=== PATIENT | female | born 1980 | race Caucasian/White ===

== ENCOUNTER 2016-12-15 10:36 | Emergency (ER) | payer OTHER ==
[~2016-12-15] VITALS: Ht 162.6 cm; Wt 58.3 kg
[~2016-12-15 10:36] MED LIST: CALC500C70 PO; OMEG10007 PO; PRENTAB26 PO
[2016-12-15 10:40] VITALS: TEMP 36.8; Ht 162.6 cm; Wt 58.3 kg
[2016-12-15] MEDS ORDERED: MULT-506 PO (11:14)
--- NOTE | 2016-12-15 11:48 | EMERGENCY ROOM VISIT NOTE ---
History First contact with patient: 10:54 Chief Complaint: HEAD INJURY (MINOR) Stated Complaint: MILD CONCUSSION,HEADACHE,FATIGUE History of Present Illness The patient is a 36 year old female who presents to the Emergency Room with complaints of left-sided facial injury. The patient states yesterday she was bending down and moving an ottoman in her living room when her 40 pound dog jumped and hit her in the left side of the face. The patient denies any loss of consciousness, dizziness, visual changes. The patient denies any nausea or vomiting. The patient states that since that time she has difficulty concentrating and feels tired. The patient states that she has chronic neck pain. She states she normally sees a chiropractor for her neck pain. Review of Systems 10 system review was performed and was negative unless stated otherwise history of present illness. Social History Smoking Status: Never Smoker Current/Historical Medications Scheduled Multivitamin (Multivitamin), 1 TAB PO DAILY Physical Exam Vital Signs Date Time Temp Pulse Resp B/P (MAP) Pulse Ox O2 Delivery O2 Flow Rate FiO2 12/15/16 10:40 36.8 96 18 131/82 96 Room Air Physical Exam GENERAL: 36-year-old white female appears in no acute distress. MENTAL Status: Alert and oriented 3. HEAD: Atraumatic, nontender to palpation throughout. FACE: Small amount of ecchymosis noted over the left zygomatic arch which is nontender to palpation. Remainder face is unremarkable. EYES: PERRLA. EOMs intact. EARS: Canals clear. TMs without hemotympanum NECK: Supple, no lymphadenopathy noted. No carotid bruits noted. LUNGS: Clear auscultation without wheezes rales or rhonchi. CARDIAC: Regular rate and rhythm without murmur. Pulses is full and equal throughout. NEURO:Cranial nerves two through 12 intact. Cerebellar function intact with [id number]. Fine motor intact with alternating finger motions. Medical Decision & Procedures ED Course The patient was evaluated. I discussed with the patient that I do not feel that we you to obtain a CAT scan at this time. She was in agreement. The patient was discharged home in stable condition. Medical Decision Differential diagnosis include intracranial bleed, concussion, head contusion, facial contusion, facial fracture Impression Primary Impression: Facial contusion Departure Information Dispostion Home / Self-Care Condition GOOD Referrals Mychal, Etelvina J.,D.O. (PCP) Forms HOME CARE DOCUMENTATION FORM, IMPORTANT VISIT INFORMATION Patient Instructions ED Head Injury Closed, My [facility] Additional Instructions Read head injury handout instructions. Any problems return to ER immediately. Tylenol as needed for headache or facial pain over the next 72 hours. Problem Qualifiers Primary Impression: Facial contusion Encounter type: initial encounter Qualified Codes: S00.83XA - Contusion of other part of head, initial encounter
[2016-12-15 11:59] VITALS: BP 130/85; PULSE 86; O2SAT 96
== END 2016-12-15 12:02 | disposition home or self-care (01) ==
LOC: C.EDB 10:38 → C.EDD 12:02
DX: S00.83XA Contusion of other part of head, initial encounter (principal); W54.1XXA Struck by dog, initial encounter